=== PATIENT | female | born 1990 | race Caucasian/White ===

== ENCOUNTER 2020-09-14 18:53 | Emergency (ER) | payer SELFPAY ==
[~2020-09-14] VITALS: Ht 160 cm; Wt 86.2 kg
[2020-09-14 19:10] VITALS: BP 106/66
--- NOTE | 2020-09-14 19:13 | NUR ---
TO LOBBY A/W BED AMBULATORY
[2020-09-14] MEDS ORDERED: MORPHINE SULFATE 4 MG/ML SYR IM ONE (19:15)
--- NOTE | 2020-09-14 19:15 | NUR ---
SEEN AND EXAMINED BY JUSTICE WITH ORDERS AND CARRIED OUT
[2020-09-14 19:45] VITALS: BP 106/66
[2020-09-14 21:16] LABS: BASOPHILS % (AUTO) 0.5 % (0.0-2.0); EOSINOPHILS # (AUTO) 0.6 K/uL (0-0.4); HEMATOCRIT 32.7 % (36-48); HEMOGLOBIN 10.3 g/dL (12.0-16.0); LYMPHOCYTES % (AUTO) 23.5 % (20.5-51.1); MEAN CORPUSCULAR HEMOGLOBIN 23 pg (27-31); MEAN CORPUSCULAR HGB CONC 31 g/dL (33-37); MEAN CORPUSCULAR VOLUME 72.3 fL (80-94); MONOCYTES # (AUTO) 0.7 K/uL (0.8-1.0); NEUTROPHILS # (AUTO) 5.2 K/uL (1.8-7.7); PLATELET COUNT (AUTO) 539 K/uL (140-450); RED BLOOD CELL COUNT(AUTO) 4.53 MIL/uL (4.20-5.40); RED CELL DISTRIBUTION WIDTH 17.4 % (11.6-13.7); WHITE BLOOD COUNT (AUTO) 8.5 K/uL (4.8-10.8)
[2020-09-14 22:05] LABS: APPEARANCE,URINE CLEAR (CLEAR); BILIRUBIN,URINE NEGATIVE (NEGATIVE); BLOOD, URINE NEGATIVE (NEGATIVE); COLOR,URINE YELLOW (YELLOW); LEUKOCYTE ESTERASE ,URINE 1+ (NEGATIVE); NITRITE, URINE NEGATIVE (NEGATIVE); PH,URINE 7.5 (5.0-9.0); UGLUCOSE NEGATIVE (NEGATIVE)
[2020-09-14 22:16] LABS: RBC,URINE 0-5 /HPF (0-5)
[2020-09-14] MEDS ORDERED: MORPHINE SULFATE 4 MG/ML SYR ONE (22:53)
--- NOTE | 2020-09-14 23:15 | NUR ---
MEDICATED PER [facility] ORDER, TOLERATED WELL.
[2020-09-14] MEDS ORDERED: HYDROcodone/APAP 5/325 MG 1 TAB TAB PO ONE (23:45)
--- NOTE | 2020-09-15 00:08 | NUR ---
Patient discharged with v/s stable. Written and verbal after care instructions given and explained. Patient alert, oriented and verbalized understanding of instructions. Ambulatory with steady gait. All questions addressed prior to discharge. ID band removed. Patient advised to follow up with PMD. Rx of NORCO, NAPROSYN, KEFLEX given. Patient educated on indication of medication including possible reaction and side effects. Opportunity to ask questions provided and answered.
== END 2020-09-15 00:08 | disposition home or self-care (01) ==
LOC: MED 18:53
DX: N83.201 Unspecified ovarian cyst, right side (principal); N39.0 Urinary tract infection, site not specified; D57.1 Sickle-cell disease without crisis; Z90.49 Acquired absence of other specified parts of digestive tract
CPT/HCPCS: 74176; 76856; 81001; 85025; 85045; 87086; 93976; 96372; 99285; J2270